=== PATIENT | female | born 1995 | race Caucasian/White ===

== ENCOUNTER 2021-08-29 08:51 | Emergency (ER) | payer SELFPAY ==
[~2021-08-29] VITALS: Ht 152.4 cm; Wt 63.2 kg
[2021-08-29] MEDS ORDERED: BUSPIRONE PO (09:08)
[2021-08-29] MEDS ORDERED: ALDACTONE100 MG PO (09:08)
[2021-08-29 09:26] VITALS: BP 115/61
== END 2021-08-29 09:28 | disposition home or self-care (01) | DRG 951 ==
LOC: ED 08:51
DX: Z03.89 Encounter for observation for other suspected diseases and conditions ruled out (principal); F41.9 Anxiety disorder, unspecified